=== PATIENT | female | born 1965 | race Caucasian/White ===

== ENCOUNTER 2024-06-29 09:14 | Emergency (ER) | payer BC ==
[2024-06-29 09:47] VITALS: BP 141/63; PULSE 80; RESP 18; TEMP 97.5; BMI 25.6
[2024-06-29] MEDS ORDERED: MECLIZINE HCL 25 MG TABLET (FP) ONE (09:49)
[2024-06-29] MEDS ORDERED: ONDANSETRON *ODT* 4 MG TABLET ONE (09:50)
[2024-06-29] MEDS: ONDANSETRON *ODT* 4 MG TABLET SL ONE (09:52)
[2024-06-29] MEDS: MECLIZINE HCL 12.5 MG TABLET PO ONE (09:52)
[2024-06-29] MEDS ORDERED: diazePAM 5 MG TABLET ONE (12:12)
[2024-06-29] MEDS: diazePAM 5 MG TABLET PO ONE (12:15)
== END 2024-06-29 13:00 | disposition home or self-care (01) ==
LOC: FER 09:14
DX: R42 Dizziness and giddiness (principal); R11.0 Nausea; F41.9 Anxiety disorder, unspecified
CPT/HCPCS: 99283-25; Q0162